=== PATIENT | female | born 1995 | race Caucasian/White ===

== ENCOUNTER 2016-08-26 10:36 | Emergency (ER) | payer OTHER ==
[2016-08-26 10:54] LABS: URINE SOURCE CLEAN CATCH
[2016-08-26 11:00] LABS: URINE APPEARANCE TURBID; URINE BILIRUBIN NEG (NEG); URINE BLOOD 3+ (NEG); URINE COLOR YELLOW; URINE GLUCOSE NEG (NEG); URINE KETONE TRACE (NEG); URINE LEUKOCYTE ESTERASE 3+ (NEG); URINE NITRATE NEG (NEG); URINE PROTEIN 2+ (NEG); URINE SPECIFIC GRAVITY 1.022 (1.003-1.035)
[2016-08-26 11:01] LABS: CULTURE INDICATED? YES; URBCS1 AUWI INNUM /[HPF] (0-2); URINE SQUAMOUS EPITHELIAL CELL MANY /[HPF]; UWBCS1 AUWI INNUM (0-5)
[2016-08-26 11:13] LABS: URINE BACTERIA AUWI 1+ (NEGATIVE)
== END 2016-08-26 13:28 | disposition home or self-care (01) ==
LOC: CED 10:36 → CFTX 10:36
PROVIDERS: Physician Assistant Medical
DX: N30.00 Acute cystitis without hematuria (principal); F17.210 Nicotine dependence, cigarettes, uncomplicated
CPT/HCPCS: 81003; 84703; 87086; 99283